=== PATIENT | female | born 1970 | race Caucasian/White ===

== ENCOUNTER → 2017-01-30 | Outpatient (CLI) | payer MEDICARE, OTHER ==
[~2017-01-30] MED LIST: ATEN100T88 PO; BACL10TA PO; CIPR500T4 PO; CLCX200C PO; DIPH25TA82 PO; GBPN600T PO; HYDR-3720 PO; LEVO88TA26 PO; LISI10TA2 PO; LO OGESTREL PO; MORP30TA16 PO; OMEP-10 PO; POTA99TA15 PO; VEGETABLE LAXATIVE PO; VITA150T PO
--- NOTE | 2017-01-30 11:27 | Diagnostic Imaging Report ---
Ultrasound of the urinary bladder. INDICATION: Hematuria. FINDINGS: The urinary bladder appears unremarkable with a prevoid volume of 177 mL. No focal mass. Post void volume is 25 mL. IMPRESSION: Minimal residual volume of 25 mL. Dictated by: Dictated on workstation # [id number]
--- NOTE | 2017-01-30 11:34 | Diagnostic Imaging Report ---
EXAMINATION: Renal ultrasound. INDICATION: Hematuria. FINDINGS: The left kidney is 10.9 and the right kidney is 10.4 cm in length. No hydronephrosis or focal lesion. IMPRESSION: Unremarkable exam. Dictated by: Dictated on workstation # [id number]
== END ==
LOC: RAD 10:06
PROVIDERS: ATTEND Specialist
DX: R31.0 Gross hematuria (principal)
CPT/HCPCS: 76770; 76857

== ENCOUNTER → 2017-03-30 | Outpatient (CLI) | payer MEDICARE, OTHER | LOC: CARD 11:58 | PROVIDERS: ATTEND Internal Medicine Cardiovascular Disease | DX: I10 Essential (primary) hypertension (principal); R60.0 Localized edema; R06.00 Dyspnea, unspecified; E11.9 Type 2 diabetes mellitus without complications | CPT/HCPCS: 93306 ==

== ENCOUNTER → 2017-04-06 | Outpatient (CLI) | payer MEDICARE, OTHER ==
[~2017-04-06] MED LIST changes: +CATHETER FLUSH 10 ML SYR IV PRN; +REGADENOSON 0.4 MG/5 ML SYR (LEXISCAN) IV ONE
[2017-04-06 09:11] VITALS: BP 137/71
[2017-04-06 09:12] VITALS: BP 130/70
--- NOTE | 2017-04-07 16:42 | STRESS TEST ---
DATE OF SERVICE: 04/06/2017 LEXISCAN MYOVIEW STRESS TEST REPORT REFERRING PHYSICIAN: . Baseline heart rate is 59. Baseline blood pressure 136/85. Baseline EKG is sinus rhythm with no ischemic changes. In summary, the patient received 10.64 mCi of technetium-99 Myoview and the resting images were obtained. Then, the patient received 0.4 mg of Lexiscan followed by 32.9 mCi of technetium-99 Myoview. Throughout the test, there were no EKG changes. The resting and stress images were reviewed and compared in the short axis, horizontal long axis, and vertical long axis views. Review of the images showed breast attenuation with typical female pattern. No significant ischemia was noted. SSS is 4, SDS 4, TID value 1.06. On the gated images, the left ventricle appeared to be normal size with normal contractility. Calculated ejection fraction 68%. CONCLUSION: 1. The patient tolerated Lexiscan well. 2. Breast attenuation with decreased uptake at the base of the anterior wall with subtle reversibility, no significant ischemia or infarction was noted. 3. Normal left ventricular size with normal contractility. Calculated ejection fraction 68%. Job ID: [id number] DocumentID: [id number] Dictated Date: 04/07/2017 14:04:47 [employer] Date: 04/07/2017 16:42:15 Dictated By: AMANDA KHALIL MD
== END ==
LOC: CARD 07:44
PROVIDERS: ATTEND Internal Medicine Cardiovascular Disease
DX: I10 Essential (primary) hypertension (principal); R60.9 Edema, unspecified; E11.9 Type 2 diabetes mellitus without complications; R06.00 Dyspnea, unspecified
CPT/HCPCS: 78452; 93017

== ENCOUNTER → 2017-08-14 | Outpatient (CLI) | payer MEDICARE, OTHER ==
[~2017-08-14] MED LIST changes: -CATHETER FLUSH 10 ML SYR IV PRN; +IOHEXOL 350 MG/ML 100 ML (OMNIPAQUE 350) VIAL IV ONE; +NS 250 ML (IVPB) BAG IV ONE; -REGADENOSON 0.4 MG/5 ML SYR (LEXISCAN) IV ONE
--- NOTE | 2017-08-14 10:17 | Diagnostic Imaging Report ---
PROCEDURE: CT abdomen and pelvis with contrast. TECHNIQUE: Multiple contiguous axial images were obtained through the abdomen and pelvis after administration of intravenous contrast. INDICATION: Gross hematuria. COMPARISON: None. FINDINGS: Included portions of the lung bases show 4 mm micronodule within the lateral right lung base (image 4, series 5). CT abdomen: Single nonobstructive right renal calculus is noted within the inferior pole. No other renal or ureteral calculi are seen on either side. Additionally, there is no hydroureteronephrosis or other evidence of obstruction. No renal masses are identified. The adrenal glands, spleen, pancreas, and liver have a normal CT appearance. There is no loculated fluid collection, free fluid, nor free air within the abdomen. No abnormal mesenteric or retroperitoneal adenopathy is seen. Small bowel loops are nondistended. Normal appendix is identified. Moderate colonic air and stool is noted. Midline ventral hernia is identified. Ostium measures 5.8 cm in length. Bony structures show no acute abnormalities. CT pelvis: Urinary bladder is minimally opacified, but is otherwise grossly unremarkable. There is no loculated fluid collection, free fluid, nor free air within the pelvis. No abnormal lymph nodes are identified. Bony structures show post surgical changes in the lumbar spine. No acute osseous abnormalities are seen. IMPRESSION: 1. Single nonobstructive right renal calculus. 2. Midline fat containing ventral hernia. 3. Moderate colonic air and stool. Please correlate for constipation. Dictated by: Dictated on workstation # [id number]
== END ==
LOC: RAD 07:54
PROVIDERS: ATTEND Internal Medicine
DX: N20.0 Calculus of kidney (principal); K43.9 Ventral hernia without obstruction or gangrene
CPT/HCPCS: 74177

== ENCOUNTER → 2018-06-04 | Outpatient (CLI) | payer MEDICARE, OTHER ==
[~2018-06-04] MED LIST changes: -IOHEXOL 350 MG/ML 100 ML (OMNIPAQUE 350) VIAL IV ONE; -NS 250 ML (IVPB) BAG IV ONE
--- NOTE | 2018-06-04 18:16 | Diagnostic Imaging Report ---
INDICATION: Injury to left hip. EXAMINATION: AP and oblique views of the left hip were obtained as well as an AP view of the pelvis. FINDINGS: There is a comminuted subtrochanteric fracture of the left proximal femur, with marked varus angulation as well as displacement. There is at least 5.5 cm of displacement of the distal fragment relative to the proximal fragment. There is no dislocation of the hip joint. There is osteopenia. IMPRESSION: Comminuted displaced subtrochanteric fracture of the left proximal femur with marked varus angulation. Dictated by: Dictated on workstation # [id number]
== END ==
LOC: RAD 16:12
PROVIDERS: ATTEND Orthopaedic Surgery
DX: S72.22XK Displaced subtrochanteric fracture of left femur, subsequent encounter for closed fracture with nonunion (principal)

== ENCOUNTER → 2020-08-22 | Outpatient (CLI) | payer MEDICARE, OTHER ==
--- NOTE | 2020-08-22 12:51 | Diagnostic Imaging Report ---
INDICATION: Routine screening. COMPARISON: 04/02/2012. TECHNIQUE: 2D and 3D bilateral screening mammography was performed with CAD. FINDINGS: Scattered fibroglandular densities are identified bilaterally. A small benign nodule in the left breast is stable. No new mass or malignant appearing microcalcifications are seen. The axillae are unremarkable. IMPRESSION: No mammographic features suspicious for malignancy are identified. ACR BI-RADS Category 2: Benign findings. Result letter will be mailed to the patient. Note: At least 10% of breast cancer is not imaged by mammography. Dictated by: Dictated on workstation # [id number]
== END ==
LOC: RAD 10:30
PROVIDERS: ATTEND Internal Medicine
DX: Z12.31 Encounter for screening mammogram for malignant neoplasm of breast (principal)
CPT/HCPCS: 77063; 77067